=== PATIENT | female | born 2005 | race Caucasian/White ===

== ENCOUNTER 2024-01-12 17:04 | Emergency (ER) | payer OTHER, SELFPAY ==
[2024-01-12 17:10] VITALS: BP 133/94
[2024-01-12 18:07] VITALS: BMI 37.8
[2024-01-12 18:08] VITALS: BP 116/71
[2024-01-12 19:00] VITALS: BP 117/74
--- NOTE | 2024-01-12 19:02 | ED.GENMED ---
History of Present Illness
General
Chief Complaint: Numbness
Source: patient
Time Seen by Provider: 01/12/24 18:36
History of Present Illness
History of Present Illness:
18yoF with a history of depression presenting for evaluation of multiple complaints. Symptoms initially started 6 days ago with tingling of her lips and right face, arm, and leg. This occurred while she was sitting in class. Patient reports seeing
some swelling of her face/lips at that time and that her fingertips appeared blue. She thought she may be having an allergic reaction and was seen at the [facility]. Symptoms resolved after about an hour. She started with vomiting
yesterday morning. She noticed a small amount of bright red blood mixed in with the vomitus and she was having bleeding from her nose as well. She woke up this morning with left arm paresthesias which self-resolved. She continued to vomit throughout
the day and has not been able to tolerate PO intake. Patient had a near syncopal episode about 2 hours ago in which she felt like she was about to pass out. She also felt whole body paresthesias during the episode. Her only current symptom is
nausea. No paresthesias currently. She denies any chest pain, shortness of breath, abdominal pain, diarrhea, fevers.
Past History
Past History
ED Past Medical History: Psychiatric
ED Past Surgical History: Other (Hernia repair, rhinoplasty)
Social History
Tobacco: Non-smoker
Alcohol: None
Drug: None
Personal: Single
Living: with roommate
Phy Exam
General Physical Exam
General Presentation: well appearing and no apparent distress
General age: appears stated age
General Skin: warm and dry
General Habitus: normal
General Mental: alert
General Hydration: appears well hydrated
ENT Exam
ENT Exam: pharynx normal and normocephalic
Eye Exam
Eye Exam: PERRL and EOMI
Cardiovascular Exam
Cardiovascular Exam: regular rate/rhythm and no murmur
Pulmonary Exam
Pulmonary Exam: lungs clear, no respiratory distress, no crackles and no wheezing
Gastrointestinal Exam
Gastrointestinal Exam: non tender, soft and non distended
Neurological Exam
Neurological Exam: alert, no motor deficits and other (CN 2-12 grossly intact. 5/5 strength and gross sensation intact in all extremities. No focal neuro deficits appreciated.)
Christine Coma Scale
Eye Opening: Spontaneous
Verbal Response: Oriented
Motor Response: Obeys Commands
GCS Total Score: 15
Skin Exam
Skin Exam: normal color and warm/dry
Psychiatric Exam
Psychiatric Exam: normal mood/affect
Course
Orders/Labs/Results
Orders:
Orders
01/12/24 17:10
Electrocardiogram (*1) Urgent
Reason for Study: Syncope
EKG- Treatment ONCE
01/12/24 19:01
Electrocardiogram (*1) Urgent
Reason for Study: Fatigue / Weakness
0.9% Sodium Chloride 500 ml [Nss] 500 ml IV BOLUS
Ondansetron Injectable [Zofran] 4 mg IV NOW STA
Test Result ONCE
01/12/24 19:16
Complete Blood Count/With Diff Urgent
Comprehensive Metabolic Panel Urgent
HCG, Serum Qualitative Screen Urgent
Magnesium Urgent
TSH Reflex To Free T4 Urgent
Abnormal Lab Results
01/12/24
19:16
Hgb 11.7 L g/dL
(12.0-16.0)
Hct 35.7 L %
(37.0-47.0)
MCHC 32.8 L g/dL
(33.0-37.0)
MPV 10.6 H fL
(7.4-10.4)
Absolute Lymphs (auto) 3.5 H 10^3/uL
(1.2-3.4)
Absolute Monos (auto) 0.7 H 10^3/uL
(0.1-0.6)
01/12/24 19:16
01/12/24 19:16
Vital Signs
Initial and Last Documented VS:
Initial Vital Signs
Temp Pulse Resp BP Pulse Ox
98.2 F 79 16 133/94 100
01/12/24 17:10 01/12/24 17:10 01/12/24 17:10 01/12/24 17:10 01/12/24 17:10
Last Documented Vital Signs
Temp Pulse Resp BP Pulse Ox
98.2 F 79 16 121/44 100
01/12/24 17:10 01/12/24 17:10 01/12/24 17:10 01/12/24 21:24 01/12/24 21:24
MDM/Problems Addressed
Differential Diagnosis Includes:
18yoF here with multiple complaints including nausea/vomiting x 1 day. Had a near syncopal episode this afternoon. Also had an episode of R sided paresthesias last week which self-resolved. No current neuro symptoms. She is afebrile and
hemodynamically stable. She is well appearing in no distress. Exam is reassuring. No focal neuro deficits appreciated. Differential diagnosis includes but is not limited to: dehydration, electrolyte abnormality, anemia, arrhythmia, no clinical
findings to suggest CVA
Initial ED plan: Check CBC, CMP, TSH, magnesium, and EKG. IV Zofran and fluid bolus for symptoms.
*EKG
Interpreted by ED Provider?: Yes
EKG Intrepretation Date: 01/12/24
Heart Rate: 67
Rate: normal
Rhythm: sinus
[place]: left axis deviation
Interval: normal interval
QRS Pattern: right bundle branch block (incomplete)
Ischemia: no ischemia
*Critical Care Note
Total Time (30-74mins, 75-104mins- exclusive of procedures): Not Applicable
Update Note
Update Note:
Mild anemia noted with a hemoglobin of 11.7. Remainder of labs unremarkable including normal electrolytes, renal function, glucose, TSH. EKG shows NSR without ischemic changes or ectopy. Patient feeling much better on reassessment and is laughing
with her friend. She was able to tolerate PO challenge. Patient stable for discharge. Prescription given for Zofran and supportive care discussed. Advised f/u with PCP and ED return precautions discussed. She expressed understanding and is agreeable
to plan. She was discharged in stable condition.
ED Attending Note
-
Portions of this chart may have been created with voice recognition software.� Occasional wrong word or��sound alike� substitutions may have occurred due to the inherent limitations of voice recognition software.
Discharge Plan
Departure
Patient Disposition: Home (Routine Discharge)
Date of Disposition: 01/12/24
Time of Disposition: 21:29
Patient with high blood pressure during this ER visit?: No
Discharge Problem:
Nausea and vomiting, Paresthesia
Instructions: Acute Nausea and Vomiting
Prescriptions:
New
ondansetron 4 mg tablet,disintegrating
4 mg PO Q6H PRN (Reason: nausea and vomiting) Qty: 20 0RF
Referrals:
UNKNOWN - PT DOES,NOT KNOW [Family Provider] -
Activity Restrictions/Additional Instructions:
Take Zofran as needed for nausea. Drink plenty of fluids and hydrate. Advance slowly to a bland diet (bananas, rice, applesauce, toast).
Please follow-up with your family doctor. Return to the ER with any new or worsening symptoms.
Interventions
Interventions:
*Risk Screen - Suicide Last Done: 01/12/24 17:13
*General Assessment Last Done: 01/12/24 17:13
*Neglect/Abuse Screening Last Done: 01/12/24 17:13
ED- Fall Risk Assessment Last Done: 01/12/24 18:08
*ED COVID-19 Vaccine History Last Done: 01/12/24 17:13
*Nursing Disposition Last Done: 01/12/24 21:36
ED- Neurological Assessment Last Done: 01/12/24 18:08
Discharge Date and Time
Discharge Date/Time: 01/12/24 21:43
Print Language: MONGOLIAN
[2024-01-12] MEDS: NSS 500 IV (19:18)
[2024-01-12] MEDS: ZOFRAN 4 MG IV (19:19)
[2024-01-12 19:31] LABS: % Basophils 0.4 % (0-2); % Eosinophils 0.9 % (0-6); % Immature Granulocytes 0.4 % (0-0.5); % Lymphocytes 32.2 % (20.5-51.1); % Monocytes 6.8 % (1.7-9.3); % Neutrophils 59.3 % (42.2-75.2); Absolute Eosinophils 0.1 10^3/uL (0-0.7); Absolute Lymphocytes 3.5 10^3/uL (1.2-3.4); Absolute Monocytes 0.7 10^3/uL (0.1-0.6); Absolute Neutrophils 6.4 10^3/uL (1.4-6.5); Hematocrit 35.7 % (37.0-47.0); Hemoglobin 11.7 g/dL (12.0-16.0); Mean Corp Hgb Conc. 32.8 g/dL (33.0-37.0); Mean Corpuscular Hgb 27.6 pg (27.0-31.0); Mean Corpuscular Volume 84.2 fL (81.0-99.0); Mean Platelet Volume 10.6 fL (7.4-10.4); Nucleated Red Blood Cells % 0 %; Platelet Count 286 10^3/uL (130-400); Red Blood Cell Count 4.24 10^6/uL (4.20-5.40); Red Cell Dist. Width 13.3 % (11.5-14.5); White Blood Cell Count 10.7 10^3/uL (4.8-10.8)
[2024-01-12 19:50] LABS: HCG, Serum Qualitative Screen Negative
[2024-01-12 19:54] LABS: ALT (SGPT) 28 U/L (0-35); AST (SGOT) 28 U/L (14-36); Albumin 4.2 g/dl (3.5-5.0); Alkaline Phosphatase 85 U/L (38-126); Blood Urea Nitrogen 8 mg/dl (7-17); Calcium 9.8 mg/dl (8.4-10.2); Carbon Dioxide 23 mmol/L (22-30); Chloride 103 mmol/L (98-107); Estimated Creatinine Clearance > 125 ml/min; Glucose 83 mg/dl (70-99); Magnesium 2.2 mg/dl (1.6-2.3); Potassium 4.1 mmol/L (3.5-5.1); Sodium 140 mmol/L (135-145); Total Bilirubin 0.4 mg/dl (0.2-1.3); Total Protein 7.3 g/dl (6.3-8.2); eGFR > 60.00
[2024-01-12 20:00] VITALS: BP 127/104
[2024-01-12 20:25] LABS: TSH Reflex To Free T4 1.91 uIU/ml (0.47-4.68)
[2024-01-12 21:24] VITALS: BP 121/44
== END 2024-01-12 21:43 | disposition home or self-care (01) ==
LOC: EMR 17:04
PROVIDERS: Physician Assistant; EMERGENCY PHYSICIAN Emergency Medicine
DX: R11.2 Nausea with vomiting, unspecified (principal); R20.2 Paresthesia of skin
CPT/HCPCS: 99284; 96374; 96361; 80053; 83735; 84443; 84703; 85025; 93005